=== PATIENT | female | born 1970 | race Caucasian/White ===

== ENCOUNTER 2025-06-15 07:54 | Outpatient (AMB) | payer OTHER, SELFPAY ==
--- NOTE | 2025-06-15 08:17 | MHC.PC.OV ---
Vital Signs 06/15/25 08:19 Height 5 ft 1.81 in Weight 193 lb 2 oz BMI 35.5 BP 110/70 Blood Pressure Location Lt brachial Position Sitting Pulse 86 Pulse Source Pulse Oximeter Temp 97.1 F Temp Source Temporal Artery Scan Pulse Oximetry (%) 98 Oxygen Delivery Method Room Air Intake Visit Reasons: establish care Intake Note: Patient is a new patient here to establish care for Achalasia, PTSD, Anxiety and Panic disorder, Seasonal allergies. Transferring care from [facility] in [place]. Medical records have been requested and have not received. Semi Automatic Sewing Machine Operator Required: No Sew Out Operator: Not Required per policy Accompanied by: Self / Same As Patient Allergies Seasonal Allergies Allergy (Intermediate, Verified 06/15/25 08:29) Sneezing adhesive tape Allergy (Mild, Verified 06/15/25 08:29) Rash mold Allergy (Mild, Verified 06/15/25 08:29) Sneezing Penicillins Allergy (Mild, Verified 06/15/25 08:29) Itching dust Allergy (Mild, Uncoded 06/15/25 08:29) Sneezing Medication List - Last Reconciled 06/15/25 by Radha Chang PA-C alprazolam 0.5 mg PO DAILY PRN escitalopram oxalate 15 mg PO BEDTIME hydroxyzine HCl 50 mg PO BID PRN levocetirizine (Xyzal) 5 mg PO DAILY omeprazole mg PO DAILY Tobacco use date assessed: 06/15/25 Dental Screening Dental Screen Date: 06/15/25 Did you have a dental visit in the last 12 months?: Yes Did you have a dental problem in the last 6 months where you did not have access to dental care?: No Was dental information given to patient?: Patient has dentist HPI establish care HPI Details 55-year-old female coming to the office with the 1st time. Presenting to establish primary care. The patient has recent diagnoses of anxiety, depression, panic disorder, and post-traumatic stress disorder following the tragic of her in February. She is managed by a psychiatrist, Dr. Segovia, and sees a social media designer for therapy every two weeks. The patient has a history of achalasia and has undergone a POEM procedure in 2000 and a Heller myotomy in 2013. She continues to experience difficulty swallowing and needs a referral to see her GI specialist, Dr. Montero. In terms of gynecologic history, the patient had an IUD for 7-8 years, which was removed last month. She sees Dr. Vizcaino for gynecological care and is due for a Pap smear next year. The patient has a spot on her face that was previously removed via cryotherapy but has grown back differently and requires dermatologic evaluation. [facility] Surgical History Status post laparoscopic Heller myotomy Family History Father Diabetes mellitus Skin cancer Heart attack Mother Diabetes mellitus Other Mental health disorder Social History Housing: House Alcohol intake: never Patient Tobacco Use Status: Former Tobacco user e-Cigarette/Vaping Use: Never Used Second Hand Smoke Exposure: No service: No Current occupational status: employed Current occupation: Industrial Sales Representative Cognitive needs: No Hearing needs: No Vision needs: Yes (Glasses) Female Reproductive History Menstrual control method: none Total pregnancies: 2 History of abnormal pap smear: Yes History of abnormal mammogram: No (dense tissue) Questionnaire PHQ-9 Over the last 2 weeks, how often have you been bothered by any of the following problems? 1. Little interest or pleasure in doing things: more than half the days 2. Feeling down, depressed, or hopeless: nearly every day 3. Trouble falling or staying asleep, or sleeping too much: nearly every day 4. Feeling tired or having little energy: nearly every day 5. Poor appetite or overeating: nearly every day 6. Feeling bad about yourself - or that you are a failure or have let yourself or your family down: not at all 7. Trouble concentrating on things, such as reading the newspaper or watching television: more than half the days 8. Moving or speaking so slowly that other people could have noticed. Or the opposite - being so fidgety or restless that you have been moving around a lot more than usual: several days 9. Thoughts that you would be better off or of hurting yourself in some way: not at all Total score: 17 Depression Screening Interpretation: Positive Depression Screening Follow-up: Existing condition and In treatment Depression Screening Done: Yes Source: Developed by Drs. Jona Jensen, Alexa Coyle, Maury Javier and colleagues, with an educational bonnie from [employer]. Thrive Questionnaire Date Thrive assessed: 06/08/25 I am a: Patient What is your living situation today?: I have a steady place to live Within the past 12 months, did the food you bought not last and you didn't have the money to get more?: Never true Within the past 12 months, did you worry whether your food would run out before you got money to buy more?: Never true Do you have trouble paying for medicines?: No Do you have trouble getting transportation to medical appointments?: No Do you have trouble paying your heating and electricity bill?: No Do you have trouble taking care of your child, family member or friend?: No Do you have trouble with day-to-day activities such as bathing, preparing meals, shopping, managing finances, etc.?: No Are you currently unemployed and looking for a job?: No Are you interested in more education?: No Please select the resources that you would like help with: None Currently or been in a relationship where the following occur: No concerns reported THRIVE Score: 0 AUDIT C Alcohol Use Questionnaire (AUDIT-C) 1. How often do you have a drink containing alcohol?: Monthly or less 2. How many drinks containing alcohol do you have on a typical day when you are drinking?: 1 or 2 3. How often do you have six or more drinks on one occasion?: Never Total Score: 1 FARHAN-7 AMB Questionnaire FARHAN-7 Date FARHAN - 7 assessed: 06/15/25 Feeling nervous, anxious, or on edge: 3 = Nearly every day Not being able to stop or control worryin = Several days Worrying too much about different things: 1 = Several days Trouble relaxin = Nearly every day Being so restless that it is hard to sit still: 2 = More than half the days Becoming easily annoyed or irritable: 2 = More than half the days Feeling afraid as if something awful might happen: 3 = Nearly every day Total FARHAN-7 score (0-4 normal; 5-9 mild; 10-14 moderate; 15-21 severe): 15 Source: Developed by Alexa Odell.W. Leonides, Maury Javier and colleagues, with an educational bonnie from [employer]. FARHAN-7 Assessment Billing FARHAN-7 Assessment Tool: FARHAN-7 Assessment 42087 Review of Systems Const Denies body aches, Denies chills, Denies fever(s), Denies headache(s) and Denies poor appetite Eyes Reports no additional complaints ENT Reports dysphagia, Denies dizziness, Denies headache(s) and Denies odynophagia Card Denies chest pain, Denies edema, Denies lightheadedness and Denies dyspnea Resp Denies cough and Denies dyspnea GI Reports dysphagia, Denies nausea, Denies odynophagia and Denies vomiting Reports no additional complaints Musc Reports no additional complaints and Denies abnormal gait Skin/Breast Reports system reviewed and no additional complaints, except as documented Neuro Denies abnormal gait, Denies dizziness and Denies headache(s) Psych Reports no additional complaints Physical exam (Primary Care) Vital Signs: Last Vital Signs Temp 97.1 F 06/15/25 08:19 Pulse 86 06/15/25 08:19 BP 110/70 06/15/25 08:19 Pulse Ox 98 06/15/25 08:19 Oxygen Delivery Method Room Air 06/15/25 08:19 BMI result Body Mass Index 35.5 Tobacco/Smoking Status: Tobacco use Status Tobacco use date assessed 06/15/25 06/15/25 08:28 Patient Tobacco Use Status Former Tobacco user 06/15/25 08:32 e-Cigarette/Vaping Use Never Used 06/15/25 08:31 PHQ-9: PHQ-9 Score PHQ-9: Total score 17 06/15/25 08:31 Depression Screening Interpretation: Positive Depression Screening Follow-up: Existing condition and In treatment Thrive Assessment: Date of Thrive Assessment Date Thrive assessed 06/08/25 06/15/25 08:28 Currently or been in a relationship where the following occur: No concerns reported Const General: cooperative, healthy appearing, comfortable and no acute distress Orientation/consciousness: patient oriented x3 HENMT Head: Yes normocephalic Ears: hearing grossly normal bilaterally General nose exam: Normal external nose present Eyes General: appearance normal, both eyes and all related structures Conjunctivae: conjunctivae normal Neck Neck: Yes full ROM and Yes no lymphadenopathy Resp Effort & Inspection: normal respiratory effort Auscultation: clear to auscultation bilaterally, no crackles, no rales, no rhonchi and no wheezes Cardio Rate: regular rate Rhythm: regular rhythm Skin General skin exam: no rashes or lesions noted Neuro General: patient oriented x3 Gait exam (Neuro): Normal gait present Extrem General: Yes normal to inspection, Yes full ROM and No edema Psych Affect: normal affect Attitude: cooperative Insight: Good insight present (Psych) Judgement: Good judgement present (Psych) Coding Level of Care Code New Pt Level 4 (49473) Diagnoses Anxiety F41.9 Panic disorder F41.0 PTSD (post-traumatic stress disorder) F43.10 Depression F32.A Seasonal allergies J30.2 Skin lesion L98.9 Achalasia K22.0 GERD (gastroesophageal reflux disease) K21.9 Additional Codes FARHAN-7 Assessment Billing - FARHAN-7 Assessment Tool: FARHAN-7 Assessment 94318 ([id number]) Assessment & Plan Assessment & Plan (1) Anxiety: Code(s): F41.9 - Anxiety disorder, unspecified Category: Medical Plan: The patient has received recent diagnoses of anxiety, depression, panic disorder, and PTSD, which she is managing with a psychiatrist and a therapist. She is managing her symptoms with Lexapro and alprazolam. She denies suicidal ideation and will continue with her current mental health team. (2) Panic disorder: Code(s): F41.0 - Panic disorder [episodic paroxysmal anxiety] Category: Medical Plan: See above plan (3) PTSD (post-traumatic stress disorder): Code(s): F43.10 - Post-traumatic stress disorder, unspecified Category: Medical Plan: See above plan (4) Depression: Code(s): F32.A - Depression, unspecified Category: Medical Plan: See above plan (5) Seasonal allergies: Code(s): J30.2 - Other seasonal allergic rhinitis Category: Medical Plan: Continue on Xyzal daily (6) Skin lesion: Code(s): L98.9 - Disorder of the skin and subcutaneous tissue, unspecified Category: Medical Plan: The patient has a recurrent skin lesion on her face that grew back differently after being frozen off. A referral is placed to [facility] in [place] for evaluation. The referral paperwork will be provided to the patient. (7) Achalasia: Code(s): K22.0 - Achalasia of cardia Category: Medical Plan: The patient has a history of achalasia with persistent dysphagia despite prior surgical interventions. She has also never had a colonoscopy and is due for screening. A referral will be placed to her previous GI specialist, Dr. Montero, for evaluation, which will likely include an endoscopy and a screening colonoscopy. The referral paperwork will be printed for the patient to facilitate scheduling. (8) GERD (gastroesophageal reflux disease): Code(s): K21.9 - Gastro-esophageal reflux disease without esophagitis Category: Medical Plan: Avoid trigger foods such as citrus, tomato products, soda, caffeine, spicy foods and other foods that may be irritating to your stomach. Avoid laying flat 3-4 hours after eating and elevate the head of the bed 30 degrees to prevent acid from moving into the esophagus. Continue on Omeprazole Plan This note was constructed using voice recognition software. While every effort has been made to ensure accuracy and standpipe tender, still areas may have been included sometimes these areas may affect the content or meeting of the given symptoms. Total time spent caring for the patient today was 30 minutes. This includes time spent before the visit reviewing the chart, time spent during the visit, and time spent after the visit and documentation. Patient was informed and verbally consented to the use of an ambient scribe for clinic note documentation during this visit. Orders: Orders Comprehensive Met. Panel Today Z00.00 - Encounter for general adult medical examination without abnormal findings Lipid Panel Today Z13.1 - Encounter for screening for diabetes mellitus, Z13.220 - Encounter for screening for lipoid disorders Hemoglobin A1c Today E11.65 - Type 2 diabetes mellitus with hyperglycemia, Z13.1 - Encounter for screening for diabetes mellitus Complete Blood Count Auto Diff Today Z13.0 - Encounter for screening for diseases of the blood and blood-forming organs and certain disorders involving the immune mechanism TSH reflex Free T4 Today Z13.29 - Encounter for screening for other suspected endocrine disorder Vitamin B12 and Folate Today Z13.21 - Encounter for screening for nutritional disorder Vitamin D 25-OH Total Today Z13.21 - Encounter for screening for nutritional disorder Referrals Gastroenterology Referral K22.0 - Achalasia of cardia, Z12.11 - Encounter for screening for malignant neoplasm of colon Dermatology Referral L98.9 - Disorder of the skin and subcutaneous tissue, unspecified
[2025-06-15 08:19] VITALS: BP 110/70; PULSE 86; TEMP 36.2; O2SAT 98; BMI 35.5
== END 2025-06-15 08:58 | disposition home or self-care (01) ==
LOC: HO.HMCH 07:55
DX: F41.9 Anxiety disorder, unspecified (principal); F41.0 Panic disorder [episodic paroxysmal anxiety]; F43.10 Post-traumatic stress disorder, unspecified; F32.A Depression, unspecified; J30.2 Other seasonal allergic rhinitis; L98.9 Disorder of the skin and subcutaneous tissue, unspecified; K22.0 Achalasia of cardia; K21.9 Gastro-esophageal reflux disease without esophagitis

== ENCOUNTER → 2025-06-15 07:54 | Outpatient (BNVA) | payer OTHER, SELFPAY | DX: K21.9 Gastro-esophageal reflux disease without esophagitis (principal); K22.0 Achalasia of cardia; F41.9 Anxiety disorder, unspecified; F41.0 Panic disorder [episodic paroxysmal anxiety]; F43.10 Post-traumatic stress disorder, unspecified; F32.A Depression, unspecified; J30.2 Other seasonal allergic rhinitis; L98.9 Disorder of the skin and subcutaneous tissue, unspecified | CPT/HCPCS: 96127 ==